=== PATIENT | male | born 1930 | race Caucasian/White ===

== ENCOUNTER 2017-04-04 13:52 | Outpatient (CLI) | payer MEDICARE ==
--- NOTE | 2017-04-04 15:23 | RAD ---
AP VIEW CHEST: HISTORY: Shortness of breath. History of tobacco use. FINDINGS: AP view of the chest is obtained on 04/04/17. Comparison is made to a previous exam from04/06/09. AP view chest demonstrates a dual-lead intracardiac defibrillator. Calcification of the aorta is se en. The lungs are well aerated. No evidence of active intrathoracic disease is seen. No evidence of effusions, pneumonia, or pneumothorax seen. IMPRESSION: Unremarkable AP view chest. POS: [facility]
== END 2017-04-04 13:53 | disposition home or self-care (01) ==
LOC: MADRAD 13:52
PROVIDERS: ATTEND Obstetrics & Gynecology
DX: Z72.0 Tobacco use (principal)
CPT/HCPCS: 71020